=== PATIENT | female | born 1995 | race Caucasian/White ===

== ENCOUNTER 2018-07-29 12:58 | Emergency (ER) | payer BC ==
[2018-07-29 13:27] VITALS: BP 115/63
--- NOTE | 2018-07-29 13:38 | UC ---
Complaint Female HPI - HPI Summary HPI Summary: 22 year old female presents with 4-5 day history of dysuria, frequency, and urgency. Denies fever, chills, back/flank pain, abdominal pain, nausea, vomiting , hematuria, or vaginal discharge. She is sexually active. Uses condoms consistently. No other BC. LMP 07/18/2018. - History Of Current Complaint Chief Complaint: UCGU Stated Complaint: URINARY Time Seen by Provider: 07/29/18 13:17 Hx Obtained From: Patient Hx Last Menstrual Period: 07/18/18 Onset/Duration: Gradual Onset, Lasting Days - 4-5 Timing: Constant Severity Currently: Mild Pain Intensity: 2 Character: Burning Aggravating Factor(s): Urination Alleviating Factor(s): Nothing Associated Signs And Symptoms: Negative: Fever, Back Pain, Vaginal Bleeding/ Discharge, Nausea, Vomiting(# Of Episodes =), Genital Swelling, Genital Blisters - Allergies/Home Medications Allergies/Adverse Reactions: Allergies Allergy/AdvReac Type Severity Reaction Status Date / Time No Known Allergies Allergy Verified 07/29/18 13:22 PMH/Surg Hx/FS Hx/Imm Hx Previously Healthy: Yes - Denies significant PMH - Surgical History Surgical History: None - Family History Family History: Noncontributory - Social History Occupation: Student Lives: Dormitory/Roommates Alcohol Use: Occasionally Substance Use Type: None Smoking Status (MU): Never Smoked Tobacco Review of Systems Constitutional: Negative Respiratory: Negative Cardiovascular: Negative Gastrointestinal: Negative Genitourinary: Dysuria, Frequency, Urgency Is Patient Immunocompromised?: No All Other Systems Reviewed And Are Negative: Yes Physical Exam Triage Information Reviewed: Yes Appearance: Well-Appearing, No Pain Distress, Well-Nourished Vital Signs: Initial Vital Signs Temp 97.2 F 07/29/18 13:20 Pulse 77 07/29/18 13:20 Resp 15 07/29/18 13:20 BP 115/63 07/29/18 13:20 Pulse Ox 100 07/29/18 13:20 Vital Signs Reviewed: Yes Respiratory: Positive: Lungs clear, Normal breath sounds, No respiratory distress Cardiovascular: Positive: RRR, No Murmur Abdomen Description: Positive: Nontender, No Organomegaly, Soft. Negative: CVA Tenderness (R), CVA Tenderness (L), Distended, Guarding Neurological: Positive: Alert Skin Exam: Normal Diagnostics - Laboratory Diagnostic Studies Completed/Ordered: POC UA 1+ leukocyte esterase, 2+ blood, trace protein. Urine negative. Complaint Female Dx - Course Course Of Treatment: 22 year old female with 4-5 day history of UTI symptoms. Afebrile. Exam unremarkable. UA 1+ leukocytes, 2+ blood, trace protein. Urine negative. Will treat with 3 day course of Bactrim DS. Pryidium x 2 days for discomfort. She is to return here or follow up at [facility] if symptoms persist. Warning symptoms reviewed. Verbalizes understanding and agrees with POC. - Differential Dx/Diagnosis Provider Diagnoses: UTI Discharge - Sign-Out/Discharge Documenting (check all that apply): Patient Departure All imaging exams completed and their final reports reviewed: No Studies - Discharge Plan Condition: Stable Disposition: HOME Prescriptions: Phenazopyridine TAB* [Pyridium 100 mg TAB*] 100 mg PO TID #6 tab Sulfamethox/Trimethoprim DS* [Bactrim DS 800/160 TAB*] 1 tab PO BID #6 tab Patient Education Materials: Urinary Tract Infection in Women (DC) Referrals: No Primary Care Phys,NOPCP [Primary Care Provider] - Additional Instructions: Your urine test in the clinic today was suggestive of a urinary tract infection. We will send the urine for culture to see what bacteria grow out and to make sure that the antibiotic you were prescribed is effective against the bacteria. It typically takes 48-72 hours to get these results. Start Bactrim DS 1 tab twice a day for 3 days. Take Pyridium 1 tablet every 8 hours for the next 2 days to help with the discomfort. Be aware that this medication will cause her urine to turn and orange color. Make sure you're drinking plenty of fluids. Make sure you are using the bathroom frequently and emptying her bladder completely each time. Wipe from front to back to avoid introducing bacteria into the urinary tract. You should urinate immediately after any sexual intercourse. Follow-up with your primary care provider or at the [facility] if your symptoms persist. Seek immediate medical attention in the emergency room if you develop a fever greater than 100.5 F, have severe abdominal pain, persistent vomiting, or any worsening of symptoms. - Billing Disposition and Condition Condition: STABLE Disposition: Home
== END 2018-07-29 13:52 | disposition home or self-care (01) ==
LOC: UCCORT 12:58
DX: N39.0 Urinary tract infection, site not specified (principal)
CPT/HCPCS: 81003; 84702; 87086; 99202; G0463